=== PATIENT | female | born 1970 | race Caucasian/White ===

== ENCOUNTER 2022-02-23 02:56 | Inpatient (IN) | payer OTHER, MEDICAID ==
[~2022-02-23] VITALS: Ht 167.6 cm; Wt 76.2 kg
[2022-02-23 03:10] VITALS: BP_SYST 114
[2022-02-23 03:39] LABS: BASOPHILS # (AUTO) 0.1 K/uL (0.0-0.2); BASOPHILS % (AUTO) 0.5 % (0.0-2.0); EOSINOPHILS # (AUTO) 0.1 K/uL (0.0-0.4); EOSINOPHILS % (AUTO) 0.8 % (0.0-4.0); HEMATOCRIT 41.9 % (36-48); LYMPHOCYTES # (AUTO) 1.4 K/uL (1.0-5.5); LYMPHOCYTES % (AUTO) 11.8 % (20.5-51.5); MEAN CORPUSCULAR VOLUME 89 fL (79.0-98.0); MONOCYTES # (AUTO) 0.7 K/uL (0.0-1.0); MONOCYTES % (AUTO) 5.8 % (1.7-9.3); NEUTROPHILS # (AUTO) 9.3 K/uL (1.8-7.7); NEUTROPHILS % (AUTO) 81.1 % (40.0-70.0); PLATELET COUNT (AUTO) 246 K/uL (130-430); RED BLOOD CELL COUNT(AUTO) 4.73 MIL/uL (4.2-6.2); RED CELL DISTRIBUTION WIDTH 13.2 % (9.0-15.0); WHITE BLOOD COUNT (AUTO) 11.5 K/uL (4.8-10.8)
[2022-02-23] MEDS ORDERED: LORazepam 2 MG/ML VIAL IVP ONE (03:45)
[2022-02-23] MEDS ORDERED: NACL 0.9% 1,000 ML IV ONE (03:45)
[2022-02-23 03:49] LABS: ANION GAP 6 (5-15); CHLORIDE 105 mmol/L (98-107); CREATININE 1.12 mg/dL (0.55-1.30); GLUCOSE 116 mg/dL (70-99); POTASSIUM 3.6 mmol/L (3.5-5.1); UREA NITROGEN, BLOOD 24 mg/dL (8-21)
[2022-02-23 03:50] LABS: GFR AFRICAN AMERICAN 65 mL/min (>90)
[2022-02-23 03:56] LABS: PROTHROMBIN TIME 10.1 SECS (9.5-12.5)
[2022-02-23] MEDS ORDERED: LORazepam 2 MG/ML VIAL ONE (04:33)
[2022-02-23 05:48] LABS: ALANINE AMINOTRANSFERASE 29 U/L (12-78); ALBUMIN 4.1 g/dL (3.4-4.8); ASPARTATE AMINOTRANSFERASE 25 U/L (10-37); TOTAL BILIRUBIN 0.5 mg/dL (0.0-1.0)
[2022-02-23] MEDS ORDERED: DIPHENHYDRAMINE INJ 50 MG/ML VIAL ONE (06:37)
[2022-02-23] MEDS ORDERED: HALOPERIDOL LACTATE 5 MG/ML VIAL ONE (06:40)
[2022-02-23 09:07] LABS: ACETAMINOPHEN < 1 ug/mL (1-30); ALCOHOL, BLOOD < 3 mg/dL (<10)
[2022-02-23 09:41] LABS: CKMB RELATIVE INDEX 0.6 (0.0-2.9); CREATINE KINASE MB 1.8 ng/mL (0-3.6)
[2022-02-23 09:53] LABS: BILIRUBIN,URINE NEGATIVE (NEGATIVE); BLOOD, URINE NEGATIVE (NEGATIVE); CLARITY/URINE CLEAR (CLEAR); COLOR,URINE YELLOW (YELLOW); GLUCOSE,URINE NEGATIVE (NEGATIVE); KETONES,URINE TRACE (NEGATIVE); LEUKOCYTE ESTERASE ,URINE NEGATIVE (NEGATIVE); NITRITE, URINE NEGATIVE (NEGATIVE); PH,URINE 7.5 (5.0-8.0); PROTEIN URINE NEGATIVE (NEGATIVE); UROBILINOGEN,URINE 0.2 (0.2-1.0)
[2022-02-23 11:49] LABS: BARBITURATE, URINE NEGATIVE (NEG <=200); BENZODIAZEPINE, URINE POSITIVE (NEG <=150); CANNABINOID, URINE NEGATIVE (NEG <=50); COCAINE, URINE NEGATIVE (NEG <=150); METHAMPHETAMINES SCREEN,URINE NEGATIVE (NEG <=500); OPIATE, URINE NEGATIVE (NEG <=100); PHENCYCLIDINE SCREEN,URINE NEGATIVE (NEG <=25); UR TRICYCLIC ANTIDEPRESSANTS NEGATIVE (NEG <=300); URINE AMPHETAMINE POSITIVE (NEG <=500); URINE METHADONE NEGATIVE (NEG <=200); URINE OXYCODONE SCREEN NEGATIVE (NEG <=100); URINE PROPOXYPHENE SCREEN NEGATIVE (NEG <=300)
[2022-02-23] MEDS ORDERED: DOCUSATE SODIUM 100 MG CAPSULE PO PRN (13:30)
[2022-02-23] MEDS ORDERED: ONDANSETRON HCL 4 MG/2 ML VIAL IVP PRN (13:30)
[2022-02-23] MEDS ORDERED: MORPHINE 2 MG/ML INJ. SYRINGE IVP PRN ×2 (13:30)
[2022-02-23] MEDS ORDERED: MAGNESIUM SULFATE 50 ML IV PRN (13:30)
[2022-02-23] MEDS ORDERED: LORazepam 2 MG/ML VIAL IVP PRN (13:30)
[2022-02-23] MEDS ORDERED: MUPIROCIN 2% TOPICAL OINTMENT 22 GM NS PRN (13:30)
[2022-02-23] MEDS ORDERED: ACETAMINOPHEN 325 MG TABLET PO PRN (15:00)
[2022-02-23 16:00] VITALS: BP_SYST 127
[2022-02-23] MEDS: PIPERACILLIN/TAZO 3.375/DEX-IS 50 ML IV SCH ×2 (16:00→22:15)
[2022-02-23 20:00] VITALS: BP_SYST 116
[2022-02-24] MEDS: PIPERACILLIN/TAZO 3.375/DEX-IS 50 ML IV SCH ×4 (04:23→20:56)
[2022-02-24 08:42] LABS: CALCIUM 8.8 mg/dL (8.4-11.0); CREATININE 1.09 mg/dL (0.55-1.30); POTASSIUM 3.2 mmol/L (3.5-5.1)
[2022-02-24 09:04] LABS: BASOPHILS # (AUTO) 0.1 K/uL (0.0-0.2); EOSINOPHILS # (AUTO) 0.3 K/uL (0.0-0.4); EOSINOPHILS % (AUTO) 4.4 % (0.0-4.0); LYMPHOCYTES # (AUTO) 1.9 K/uL (1.0-5.5); LYMPHOCYTES % (AUTO) 31.2 % (20.5-51.5); MEAN CORPUSCULAR VOLUME 88 fL (79.0-98.0); MONOCYTES # (AUTO) 0.4 K/uL (0.0-1.0); MONOCYTES % (AUTO) 6.8 % (1.7-9.3); NEUTROPHILS # (AUTO) 3.5 K/uL (1.8-7.7); NEUTROPHILS % (AUTO) 56.6 % (40.0-70.0); PLATELET COUNT (AUTO) 260 K/uL (130-430); RED BLOOD CELL COUNT(AUTO) 4.86 MIL/uL (4.2-6.2); RED CELL DISTRIBUTION WIDTH 13.6 % (9.0-15.0)
[2022-02-24 10:23] LABS: WHITE BLOOD COUNT (AUTO) 6.2 K/uL (4.8-10.8)
[2022-02-24 12:04] VITALS: BP_SYST 124
[2022-02-24 16:15] VITALS: BP_SYST 122
[2022-02-24] MEDS: ACETAMINOPHEN 325 MG TABLET PO PRN (17:36)
[2022-02-24] MEDS: POTASSIUM CHLORIDE 20 MEQ TAB.PRT.SR PO PRN ×2 (17:37→20:55)
[2022-02-24] MEDS: NACL 0.9% 1,000 ML IV SCH ×2 (17:39→21:08)
[2022-02-24 20:00] VITALS: BP_SYST 124
[2022-02-25] MEDS: ACETAMINOPHEN 325 MG TABLET PO PRN (02:09)
[2022-02-25 02:15] VITALS: BP_SYST 106
[2022-02-25] MEDS: PIPERACILLIN/TAZO 3.375/DEX-IS 50 ML IV SCH ×2 (04:40→09:28)
[2022-02-25] MEDS: NACL 0.9% 1,000 ML IV SCH (04:42)
[2022-02-25 07:06] LABS: CALCIUM 8.6 mg/dL (8.4-11.0); CREATININE 0.97 mg/dL (0.55-1.30); POTASSIUM 4.1 mmol/L (3.5-5.1)
[2022-02-25 07:12] LABS: BASOPHILS # (AUTO) 0.1 K/uL (0.0-0.2); BASOPHILS % (AUTO) 0.9 % (0.0-2.0); EOSINOPHILS # (AUTO) 0.2 K/uL (0.0-0.4); EOSINOPHILS % (AUTO) 3.7 % (0.0-4.0); HEMATOCRIT 42.2 % (36-48); LYMPHOCYTES % (AUTO) 31.9 % (20.5-51.5); MEAN CORPUSCULAR VOLUME 89 fL (79.0-98.0); MONOCYTES # (AUTO) 0.5 K/uL (0.0-1.0); MONOCYTES % (AUTO) 7.7 % (1.7-9.3); NEUTROPHILS # (AUTO) 3.6 K/uL (1.8-7.7); NEUTROPHILS % (AUTO) 55.8 % (40.0-70.0); PLATELET COUNT (AUTO) 258 K/uL (130-430); RED BLOOD CELL COUNT(AUTO) 4.73 MIL/uL (4.2-6.2); RED CELL DISTRIBUTION WIDTH 13.3 % (9.0-15.0); WHITE BLOOD COUNT (AUTO) 6.4 K/uL (4.8-10.8)
[2022-02-25 07:39] VITALS: BP_SYST 108
[2022-02-25 11:27] VITALS: BP_SYST 125
== END 2022-02-25 12:00 | disposition home or self-care (01) | DRG 70 ==
LOC: SED 02:56 → EDBD 13:14 → SMU 13:14
PROVIDERS: ADMIT Family Medicine; ATTEND Family Medicine
DX: G93.41 Metabolic encephalopathy (principal); N17.0 Acute kidney failure with tubular necrosis; M62.82 Rhabdomyolysis; E86.0 Dehydration; E87.6 Hypokalemia; D72.829 Elevated white blood cell count, unspecified; Z20.822 Contact with and (suspected) exposure to COVID-19; T50.905A Adverse effect of unspecified drugs, medicaments and biological substances, initial encounter
CPT/HCPCS: 36415; 70450-TC; 71045; 72125-TC; 76376; 80048; 80053; 80307; 81003; 82550; 82553; 83605; 83735; 84484; 85025; 85610-TC; 85730-TC; 93005; 96361; 96374; 99285; G0480; G0481; G0482; J1200; J1630; J2060; J2543

== ENCOUNTER 2023-10-23 16:01 | Inpatient (IN) | payer MEDICAID, OTHER ==
[~2023-10-23] VITALS: Ht 167.6 cm; Wt 72.6 kg
[2023-10-23 16:08] VITALS: BP_SYST 130; PULSE 105; RESP 22; TEMP 98.3; O2SAT 98
[2023-10-23 17:11] LABS: BASOPHILS % (AUTO) 0.3 % (0.0-2.0); EOSINOPHILS # (AUTO) 0.1 K/uL (0.0-0.4); EOSINOPHILS % (AUTO) 0.7 % (0.0-4.0); HEMATOCRIT 52.2 % (36-48); HEMOGLOBIN 18.2 g/dL (12.0-16.0); LYMPHOCYTES # (AUTO) 1.9 K/uL (1.0-5.5); LYMPHOCYTES % (AUTO) 14.3 % (20.5-51.5); MEAN CORPUSCULAR HEMOGLOBIN 30 pg (27-31); MEAN CORPUSCULAR HGB CONC 35 % (32-36); MEAN CORPUSCULAR VOLUME 87 fL (79.0-98.0); MONOCYTES % (AUTO) 7.3 % (1.7-9.3); NEUTROPHILS # (AUTO) 10.2 K/uL (1.8-7.7); NEUTROPHILS % (AUTO) 77.4 % (40.0-70.0); PLATELET COUNT (AUTO) 328 K/uL (130-430); RED BLOOD CELL COUNT(AUTO) 5.99 MIL/uL (4.2-6.2); RED CELL DISTRIBUTION WIDTH 13.1 % (9.0-15.0); WHITE BLOOD COUNT (AUTO) 13.2 K/uL (4.8-10.8)
[2023-10-23] MEDS: ONDANSETRON 4 MG ODT TAB PO ONE (17:16)
[2023-10-23 18:04] LABS: ALANINE AMINOTRANSFERASE 217 U/L (12-78); ALBUMIN 4.3 g/dL (3.4-4.8); AMYLASE 58 U/L (0-100); ANION GAP 12 (5-15); ASPARTATE AMINOTRANSFERASE 128 U/L (10-37); BILIRUBIN,DIRECT 0.5 mg/dL (0.0-0.3); CALCIUM 8.9 mg/dL (8.4-11.0); CARBON DIOXIDE 32 mmol/L (23-29); CHLORIDE 89 mmol/L (98-107); CREATININE 0.97 mg/dL (0.55-1.30); GFR AFRICAN AMERICAN 77 mL/min (>90); GLUCOSE 118 mg/dL (74-106); LIPASE 24 U/L (16-77); SODIUM SERUM 133 mmol/L (136-145); TOTAL BILIRUBIN 1.3 mg/dL (0.0-1.0); UREA NITROGEN, BLOOD 28 mg/dL (8-21)
[2023-10-23 18:12] LABS: GFR NON AFRICAN-AMERICAN 64 mL/min (>90)
[2023-10-23 18:13] LABS: POTASSIUM 2.8 mmol/L (3.5-5.1)
[2023-10-23 18:31] LABS: ACETONE, SERUM TRACE (NEGATIVE)
[2023-10-23] MEDS: ONDANSETRON HCL 4 MG/2 ML VIAL IVP ONE (20:57)
[2023-10-23] MEDS ORDERED: ONDANSETRON HCL 4 MG/2 ML VIAL ONE (20:58)
[2023-10-23] MEDS: NACL 0.9% 1,000 ML IV ONE (21:19)
[2023-10-23] MEDS: KETOROLAC TROMETHAMINE 30 MG VIAL IVP ONE (21:20)
[2023-10-23] MEDS ORDERED: KCL 20 mEq in 100 mL (PREMIX) 200 ML IV ONE (21:32)
[2023-10-23] MEDS: KCL 40 mEq in 100 mL (PREMIX) 100 ML IV ONE (21:44)
[2023-10-24] MEDS ORDERED: PANTOPRAZOLE SODIUM 40 MG/VIAL (PROTONIX) ONE (00:43)
[2023-10-24] MEDS: PANTOPRAZOLE SODIUM 40 MG/VIAL (PROTONIX) IVP ONE (00:51)
[2023-10-24] MEDS ORDERED: ONDANSETRON HCL 4 MG/2 ML VIAL IVP PRN (01:30)
[2023-10-24] MEDS: LR 1,000 ML IV ONE (02:53)
[2023-10-24] MEDS: FAMOTIDINE PF 20 MG/2 ML VIAL IVP SCH (02:53)
[2023-10-24] MEDS: METOCLOPRAMIDE HCL 10 MG/2 ML VIAL IVP SCH (02:54)
[2023-10-24] MEDS ORDERED: KCL 20 mEq in 100 mL (PREMIX) 100 ML IV ONE (03:51)
[2023-10-24] MEDS: POTASSIUM CHLORIDE 40 MEQ in NS 250 ML IV SCH (04:08)
[2023-10-24] MEDS: KCL 20 mEq in 100 mL (PREMIX) 100 ML IV ONE (04:24)
[2023-10-24 08:58] VITALS: BP_SYST 136; PULSE 98; RESP 17; TEMP 97.3; O2SAT 96
[2023-10-24 09:08] VITALS: BP_SYST 136; PULSE 98; RESP 17; TEMP 97.8; O2SAT 96
[2023-10-24 15:29] VITALS: BP_SYST 140; PULSE 84; TEMP 97.9; O2SAT 97
[2023-10-24] MEDS: BENZOCAINE/MENTHOL 1 EACH LOZENGE MM PRN (17:42)
[2023-10-24 18:09] LABS: BILIRUBIN,URINE NEGATIVE (NEGATIVE); BLOOD, URINE NEGATIVE (NEGATIVE); CLARITY/URINE CLEAR (CLEAR); COLOR,URINE YELLOW (YELLOW); GLUCOSE,URINE NEGATIVE (NEGATIVE); KETONES,URINE NEGATIVE (NEGATIVE); LEUKOCYTE ESTERASE ,URINE NEGATIVE (NEGATIVE); NITRITE, URINE NEGATIVE (NEGATIVE); PROTEIN URINE NEGATIVE (NEGATIVE); UROBILINOGEN,URINE 0.2 (0.2-1.0)
[2023-10-24 20:00] VITALS: BP_SYST 149; PULSE 81; RESP 18; TEMP 97.1; O2SAT 96
[2023-10-25] VITALS (7 sets, daily range): BP systolic 130–151; PULSE 69–83; RESP 16–19; TEMP 97.2–98.7; O2SAT 83–99
[2023-10-25] MEDS: tiZANidine HCL 4 MG TABLET PO SCH (00:03)
[2023-10-25 04:05] LABS: BASOPHILS % (AUTO) 0.5 % (0.0-2.0); EOSINOPHILS # (AUTO) 0.3 K/uL (0.0-0.4); EOSINOPHILS % (AUTO) 3.3 % (0.0-4.0); HEMATOCRIT 39.2 % (36-48); HEMOGLOBIN 13.7 g/dL (12.0-16.0); LYMPHOCYTES # (AUTO) 2.7 K/uL (1.0-5.5); LYMPHOCYTES % (AUTO) 30.2 % (20.5-51.5); MEAN CORPUSCULAR HEMOGLOBIN 31 pg (27-31); MEAN CORPUSCULAR HGB CONC 35 % (32-36); MEAN CORPUSCULAR VOLUME 88 fL (79.0-98.0); MONOCYTES # (AUTO) 0.9 K/uL (0.0-1.0); MONOCYTES % (AUTO) 9.7 % (1.7-9.3); NEUTROPHILS # (AUTO) 5.1 K/uL (1.8-7.7); NEUTROPHILS % (AUTO) 56.3 % (40.0-70.0); PLATELET COUNT (AUTO) 242 K/uL (130-430); RED BLOOD CELL COUNT(AUTO) 4.44 MIL/uL (4.2-6.2); RED CELL DISTRIBUTION WIDTH 13.1 % (9.0-15.0)
[2023-10-25 04:19] LABS: ALBUMIN 2.8 g/dL (3.4-4.8); CALCIUM 8.1 mg/dL (8.4-11.0); CREATININE 0.71 mg/dL (0.55-1.30); POTASSIUM 3.3 mmol/L (3.5-5.1); TOTAL BILIRUBIN 0.5 mg/dL (0.0-1.0); TOTAL PROTEIN, SERUM 5.9 g/dL (6.4-8.3)
[2023-10-25] MEDS ORDERED: FAMO-132 PO (15:32)
[2023-10-25] MEDS ORDERED: ONDA-8 TL (15:33)
[2023-10-25] MEDS: POTASSIUM CHLORIDE 20 MEQ TABLET.ER PO ONE (15:44)
[2023-10-26 14:06] LABS: HEPATITIS A AB, IgM Negative (Negative); HEPATITIS B CORE AB, IgM Negative (Negative); HEPATITIS B SURFACE AG Negative (Negative)
[2023-10-29 15:06] LABS: HEPATITIS C VIRUS AB Reactive (Non Reactive)
== END 2023-10-25 16:10 | disposition home or self-care (01) | DRG 443 ==
LOC: SED 16:01 → STU 10-24 01:20
PROVIDERS: ADMIT Internal Medicine; ATTEND Internal Medicine
DX: B17.9 Acute viral hepatitis, unspecified (principal); E86.0 Dehydration; E87.6 Hypokalemia; E66.9 Obesity, unspecified; K21.9 Gastro-esophageal reflux disease without esophagitis; Z87.891 Personal history of nicotine dependence; Z79.899 Other long term (current) drug therapy; Z68.25 Body mass index [BMI] 25.0-25.9, adult; Z88.1 Allergy status to other antibiotic agents; Z88.5 Allergy status to narcotic agent
CPT/HCPCS: 36415; 76705; 80048; 80053; 80074; 80076; 81001; 81003; 82009; 82150; 83605; 83690; 83735; 84484; 85025; 93005; 96365; 96375; 99285; C9113; G0378; J2405; J2765; J3480; J3490; J7050; Q0162